=== PATIENT | female | born 1950 | race Caucasian/White ===

== ENCOUNTER → 2018-09-11 09:52 | Outpatient (CLI) | payer OTHER ==
[~2018-09-11 09:52] MED LIST: LOSARTAN POTASS25 MG PO
== END | disposition home or self-care (01) ==
LOC: EKG 09:52
DX: K80.10 Calculus of gallbladder with chronic cholecystitis without obstruction (principal); Z01.810 Encounter for preprocedural cardiovascular examination

== ENCOUNTER 2018-09-18 05:45 | Inpatient (IN) | payer OTHER ==
[~2018-09-18] VITALS: Ht 157.5 cm; Wt 48.5 kg
[2018-09-19] MEDS ORDERED: ULTRACET PO (14:02)
== END 2018-09-19 16:48 | disposition home or self-care (01) | DRG 416 ==
LOC: CIR.AMB 05:45 → O/R 15:52 → SURH 15:52
PROVIDERS: Surgery
PROC: 0DNW0ZZ Release Peritoneum, Open Approach (ICD-10-PCS; 2018-09-18)
PROC: 0FT40ZZ Resection of Gallbladder, Open Approach (ICD-10-PCS; principal; 2018-09-18 08:30)
DX: K80.00 Calculus of gallbladder with acute cholecystitis without obstruction (principal); K66.0 Peritoneal adhesions (postprocedural) (postinfection); I10 Essential (primary) hypertension; Z88.0 Allergy status to penicillin

== ENCOUNTER 2022-04-23 10:43 | Outpatient (CLI) | payer OTHER ==
[~2022-04-23 10:43] MED LIST changes: +ULTRACET PO
== END 2022-04-23 10:56 | disposition home or self-care (01) ==
LOC: SONOGRAMA 10:43
PROVIDERS: ATTEND Surgery
DX: N60.11 Diffuse cystic mastopathy of right breast (principal); C50.511 Malignant neoplasm of lower-outer quadrant of right female breast; C80.1 Malignant (primary) neoplasm, unspecified; C79.81 Secondary malignant neoplasm of breast

== ENCOUNTER 2022-05-07 06:11 | Day surgery (SDC) | payer OTHER ==
[~2022-05-07] VITALS: Ht 157.5 cm; Wt 85.7 kg
== END 2022-05-07 19:55 | disposition home or self-care (01) ==
LOC: CIR.AMB 06:11
PROVIDERS: ATTEND Surgery
DX: C50.411 Malignant neoplasm of upper-outer quadrant of right female breast (principal); C50.511 Malignant neoplasm of lower-outer quadrant of right female breast; D24.1 Benign neoplasm of right breast; R59.0 Localized enlarged lymph nodes; Z20.822 Contact with and (suspected) exposure to COVID-19; Z88.0 Allergy status to penicillin
CPT/HCPCS: 19301; 19281; 38525; 78195; A9541; L8699

== ENCOUNTER 2022-09-20 07:30 | Outpatient (CLI) | payer OTHER | END 2022-09-20 07:35 | disposition home or self-care (01) | LOC: SONOGRAMA 07:30 | PROVIDERS: ATTEND Pathology Anatomic Pathology & Clinical Pathology | DX: E04.8 Other specified nontoxic goiter (principal); E03.8 Other specified hypothyroidism ==